=== PATIENT | female | born 2005 | race Hispanic/Latino ===

== ENCOUNTER 2025-07-31 08:18 | Emergency (ER) | payer SELFPAY ==
[2025-07-31 08:34] VITALS: BP 104/79; PULSE 87; RESP 16; TEMP 36.4; O2SAT 100
--- NOTE | 2025-07-31 08:48 | ED_ITS ---
HPI - General Adult General Chief complaint: Nausea/Vomiting/Diarrhea Stated complaint: Headaches/Nausea/Numbness Time Seen by Provider: 07/31/25 08:48 Source: patient Mode of arrival: ambulatory Limitations: no limitations History of Present Illness HPI narrative: 19 yo F presents stating yesterday around 1pm she was sitting on the floor sitting cross legged folding laundry when she noticed muscle cramps and tingling to arms and legs. She got up and stretched out and tingling resolved. She started drinking water because she thought muscles cramps may be due to dehydration. Pt states that she had been cleaning all morning. Muscle cramps resolved in the evening. Pt states she had dull headache at bedtime. When she woke up today she continues to have mild headache. /10 pain. Denies numbness/tingling, weakness. No longer having muscle cramps. Ambulatory with steady gait. No N/V. No vision changes. pt started taking folic acid and metabolist vitamin 3 wks ago. No other new medications. LMP 07/20. Denies . Patient reports mild nasal congestion. Took COVID test yesterday and was negative. No sore throat or cough. Afebrile. All systems reviewed and negative except as noted above. Related Data Allergies Allergy/AdvReac Type Severity Reaction Status Date / Time No Known Allergies Allergy Verified 07/31/25 08:38 [facility] Comments At time of signature, agree with nursing past medical, surgical, social and family history. There is no relevant family history pertinent to the presenting complaint. Exam Narrative: GENERAL: This is a well-nourished, well-developed patient, in no apparent distress. HEAD: normocephalic, atraumatic. EYES: PERRL. Sclera clear/white. Vision is grossly intact. Extraocular motions intact EARS: External ears normal, auditory canals clear and without drainage, TMs normal without perforation. Hearing grossly intact. NOSE: External nose normal with no obvious nasal discharge, nares without redness, no rhinorrhea. THROAT: Mucous membranes moist, posterior pharynx clear. NECK: Neck supple, non-tender without lymphadenopathy, masses or thyromegaly. CARDIOVASCULAR: Regular rate and rhythm without murmurs, gallops, or rubs. RESPIRATORY: Clear to auscultation. Breath sounds equal bilaterally. No wheezes, rales, or rhonchi. GASTROINTESTINAL: Abdomen soft, non-tender, nondistended. Bowel sounds are active. No hepato-splenomegaly, or palpable masses. No guarding. SKIN: warm, Dry, intact with no suspicious lesions or rash, good texture and turgor. NEURO: awake, alert, and oriented to person, place and time. There were no obv ious focal neurologic abnormalities. Upper and lower bilateral extremity strength 5/5. Negative arm drift. 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 Normal gait. EXTREMITIES: No joint tenderness, effusion, or edema noted. BACK: Nontender without deformity. Course Course Level of Care: Express Care Visit Vital Signs Vital signs: Vital Signs Temperature 36.4 C L 07/31/25 08:34 Pulse Rate 87 07/31/25 08:34 Respiratory Rate 16 07/31/25 08:34 Blood Pressure 104/79 07/31/25 08:34 Pulse Oximetry 100 07/31/25 08:34 Temperature 36.4 C L 07/31/25 08:34 Pulse Rate 87 07/31/25 08:34 Respiratory Rate 16 07/31/25 08:34 Blood Pressure 104/79 07/31/25 08:34 Pulse Oximetry 100 07/31/25 08:34 Reviewed Medical Decision Making MDM Narrative Medical decision making narrative: Patient well-appearing, nontoxic. No neuro deficits. Have a mild headache, rates pain 1/10. Has not taking any [id number] medications to treat symptoms. Will follow-up with primary care physician. Will go to the ER for any worsening of symptoms. Vital Signs Vital Signs: Vital Signs Temperature 36.4 C L 07/31/25 08:34 Pulse Rate 87 07/31/25 08:34 Respiratory Rate 16 07/31/25 08:34 Blood Pressure 104/79 07/31/25 08:34 Pulse Oximetry 100 07/31/25 08:34 Temperature 36.4 C L 07/31/25 08:34 Pulse Rate 87 07/31/25 08:34 Respiratory Rate 16 07/31/25 08:34 Blood Pressure 104/79 07/31/25 08:34 Pulse Oximetry 100 07/31/25 08:34 Discharge Plan Discharge Clinical Impression: Headache, Numbness and tingling Patient Disposition: Home Condition: Stable Instructions: Paresthesia (ED), Antibiotic Form Additional Instructions: Take tylenol every 6 to 8 hours to treat your headache as needed. Drink at least 64 ounces of water a day. Call tomorrow and schedule follow up appointment with primary care physician. If you have severe headache, vision changes, numbness or weakness to extremities go to the ER. Patient Language: Welsh Follow-up/Referrals: Rima Gleason DO [Physician, Family Practice] PHYSICIAN,MANAGER RESPIRATORY CARE [Primary Care Provider, Internal Medicine] Time of Disposition: 09:00
== END 2025-07-31 09:03 | disposition home or self-care (01) ==
PROVIDERS: Emergency Provider Nurse Practitioner Family
DX: R51.9 Headache, unspecified (principal); R20.0 Anesthesia of skin; R20.2 Paresthesia of skin
CPT/HCPCS: 99203; G0463

== ENCOUNTER 2025-09-12 08:09 | Outpatient (CLI) | payer SELFPAY ==
[2025-09-12 13:03] LABS: Hematocrit 41.5 % (37.0-47.0); Hemoglobin 13.4 g/dL (12.0-15.0); Mean Corpuscular HGB Conc 32.3 g/dl (32-36); Mean Corpuscular Hemoglobin 29.0 pg (26-34); Mean Corpuscular Volume 89.8 fl (80-100); Platelet Count Result 256 k/mm3 (150-375); Red Blood Count 4.62 M/mm3 (4.2-5.4); White Blood Count 7.6 K/mm3 (4.5-10.0)
[2025-09-12 13:25] LABS: Beta HCG Quantitative < 2.39 mIU/ML
[2025-09-12 13:28] LABS: Alanine Aminotransferase 54 U/L (6-35); Albumin Level 4.5 g/dL (3.5-5.1); Alkaline Phosphatase 52 U/L (38-126); Anion Gap 11 mmol/L (4-12); Aspartate Amino Transferase 72 U/L (14-36); Bilirubin,Total 0.5 mg/dL (0.2-1.3); Blood Urea Nitrogen 10 mg/dL (7-17); Calcium 9.0 mg/dL (8.4-10.2); Carbon Dioxide 23 mmol/L (22-30); Chloride 103 mmol/L (98-107); Estimated Glomerular Filt Rate > 60; Glucose 81 mg/dL (65-110); Potassium 3.5 mmol/L (3.4-5.0); Sodium 137 mmol/L (137-145); Total Protein 8.0 g/dL (6.3-8.2)
[2025-09-12 13:32] LABS: Hemoglobin A1C 5.1 % (<5.7)
[2025-09-12 13:40] LABS: Thyroid Stimulating Hormone 1.550 uIU/mL (0.465-4.680)
== END 2025-09-12 08:10 | disposition home or self-care (01) ==
LOC: ANHGOSHLAB 08:10
PROVIDERS: PCP Family Medicine; Visit Provider Family Medicine
DX: E78.5 Hyperlipidemia, unspecified (principal); R42 Dizziness and giddiness; R73.09 Other abnormal glucose; Z79.899 Other long term (current) drug therapy; N92.6 Irregular menstruation, unspecified
CPT/HCPCS: 36415; 80053; 83036; 84443; 84702; 85027

== ENCOUNTER 2025-09-19 15:57 | Outpatient (CLI) | payer OTHER, SELFPAY ==
--- NOTE | ~2025-09-19 | CT_ITS ---
EXAMINATION: CT abdomen pelvis w con DATE: 09/19/2025 16:42 INDICATION: Noninfective gastroenteritis colitis Comparison: [ None] Technique: Multiple axial CT images of the abdomen and pelvis were obtained with IV contrast. Sagittal and coronal reformatted images were obtained. FINDINGS: Lung bases: [Small opacities in the lower lungs. ] Liver: [ No mass.] [ No intrahepatic biliary duct dilatation.] Gallbladder: [ No wall thickening or stones.] Common bile duct: [ Normal caliber.] [ No stones.] Spleen: [ Within normal limits.] Pancreas: [ No mass. No pancreatic fluid collection.] Adrenals: [ No masses.] Kidneys: [ No masses. No hydronephrosis.][ ] Lymph nodes: [ No adenopathy in the abdomen or pelvis.] Stomach, small bowel and colon: Thickening of the gilbert of the descending colon, transverse colon and rectum. Differential includes incomplete bowel wall distention versus an inflammatory/infectious process. Peritoneum cavity: [ No mesenteric fat stranding or fluid.] Bladder: [ Unremarkable.] Osseous structures: [ No acute fracture or destructive lesion.] [ Multilevel degenerative change in the visualized spine.] Abdominal aorta: [ No aneurysm.] Additional findings: There is a 1.3 x 2.0 x 1.6 cm possible hemorrhagic cyst in the right ovary. A pelvic ultrasound is recommended. IMPRESSION: 1. Thickening of the gilbert of the descending colon, transverse colon and rectum. Differential includes incomplete bowel wall distention versus an inflammatory/infectious process. 2. There is a 1.3 x 2.0 x 1.6 cm possible hemorrhagic cyst in the right ovary. A pelvic ultrasound is recommended. Reviewed, dictated and finalized at location Q. IMPRESSION: 1. Thickening of the gilbert of the descending colon, transverse colon and rectum . Differential includes incomplete bowel wall distention versus an inflammatory /infectious process. 2. There is a 1.3 x 2.0 x 1.6 cm possible hemorrhagic cyst in the right ovary. A pelvic ultrasound is recommended.
== END 2025-09-19 15:58 | disposition home or self-care (01) ==
PROVIDERS: PCP Family Medicine; Visit Provider Family Medicine
DX: K52.9 Noninfective gastroenteritis and colitis, unspecified (principal); K63.89 Other specified diseases of intestine; N83.201 Unspecified ovarian cyst, right side
CPT/HCPCS: 74177; Q9967

== ENCOUNTER 2025-09-22 04:44 | Emergency (ER) | payer OTHER, SELFPAY ==
[2025-09-22] VITALS (12 sets, daily range): BP systolic 96–106; BP diastolic 58–68; PULSE 53–73; RESP 14–21; TEMP 36.6; O2SAT 100
[2025-09-22 05:02] LABS: Hematocrit 43.2 % (37.0-47.0); Hemoglobin 14.1 g/dL (12.0-15.0); Immature Granulocyte Percent A 0.3 % (0-0.5); Lymphocytes Absolute Auto 2.66 K/mm3 (0.9-3.2); Mean Corpuscular HGB Conc 32.6 g/dl (32-36); Mean Corpuscular Hemoglobin 29.3 pg (26-34); Mean Corpuscular Volume 89.8 fl (80-100); Nucleated Red Blood Cells Absolute Auto 0.000 K/mm3 (0.0-0.012); Nucleated Red Blood Cells Perc 0.0 % (0.0-0.2); Platelet Count Result 259 k/mm3 (150-375); Red Blood Count 4.81 M/mm3 (4.2-5.4); White Blood Count 9.7 K/mm3 (4.5-10.0)
[2025-09-22 05:17] LABS: Alanine Aminotransferase 30 U/L (6-35); Albumin Level 4.6 g/dL (3.5-5.1); Alkaline Phosphatase 56 U/L (38-126); Anion Gap 10 mmol/L (4-12); Aspartate Amino Transferase 32 U/L (14-36); Bilirubin,Total 0.2 mg/dL (0.2-1.3); Blood Urea Nitrogen 15 mg/dL (7-17); Calcium 9.1 mg/dL (8.4-10.2); Carbon Dioxide 24 mmol/L (22-30); Chloride 106 mmol/L (98-107); Estimated Glomerular Filt Rate > 60; Glucose 90 mg/dL (65-110); Lipase 91 U/L (23-300); Potassium 4.0 mmol/L (3.4-5.0); Sodium 140 mmol/L (137-145); Total Protein 8.4 g/dL (6.3-8.2)
--- NOTE | 2025-09-22 05:29 | ED_ITS ---
HPI - Abdominal Pain General Chief Complaint: Abdominal Pain Stated Complaint: Abd pain / recent abnormal ct scan Time Seen by Provider: 09/22/25 05:10 History of Present Illness HPI narrative: 20-year-old female presenting to the emergency department with right lower sided abdominal pain and cramping. States she has an ovarian cyst on that side that was found at outpatient scan several days ago. She has an upcoming appointment this morning with her OBGYN as scheduled ultrasound this afternoon for the same. She has recent colitis issues that underwent colonoscopy without any acute findings. She has been taking dicyclomine for her colitis type symptoms. Endorses mild nauseousness and lightheadedness today so she came to the ER for evaluation. Did have some pain in her right side that has since subsided. No traumatic injuries. No history of appendicitis. No fever chills. No nausea or vomiting right now. Pain is much improved and denies any new symptoms otherwise. Related Data Allergies Allergy/AdvReac Type Severity Reaction Status Date / Time No Known Allergies Allergy Verified 09/22/25 04:45 Review of Systems 2 Review of Systems: As reviewed above in HPI Exam 2 Narrative: GENERAL: [Well-appearing, well-nourished, and in no acute distress.] HEAD: [Normocephalic, atraumatic.] EYES: [PERRLA and EOMI.] ENT: Nares clear, no rhinorrhea or epistaxis. Mucous membranes moist. NECK: Supple. CHEST: [Clear to auscultation. No respiratory distress.] HEART: [Regular rate and rhythm]. No murmur heard. [Normal peripheral pulses.] ABDOMEN: Soft and nondistended, nontender to palpation, no tenderness with deep palpation of either bilateral lower quadrant. No rigidity or guarding. No signs of peritonitis. EXTREMITIES: Normal range of motion. [No edema.] SKIN: Warm, dry, no rash. NEURO: [No focal deficits]. Alert and oriented [x3.] PSYCH: [Normal mood and affect.] Course Vital Signs Vital signs: Vital Signs Temperature 36.6 C 09/22/25 04:53 Pulse Rate 73 09/22/25 04:53 Respiratory Rate 16 09/22/25 04:53 Blood Pressure 106/58 L 09/22/25 04:53 Pulse Oximetry 100 09/22/25 04:53 Oxygen Delivery Room Air 09/22/25 04:53 Temperature 36.6 C 09/22/25 04:53 Pulse Rate 73 09/22/25 04:53 Respiratory Rate 16 09/22/25 04:53 Blood Pressure 106/58 L 09/22/25 04:53 Pulse Oximetry 100 09/22/25 04:53 Oxygen Delivery Room Air 09/22/25 04:53 MDM - Abdominal Pain MDM Narrative Medical decision making narrative: 20-year-old female presenting to the emergency department with right lower sided abdominal pain and cramping. States she has an ovarian cyst on that side that was found at outpatient scan several days ago. She has an upcoming appointment this morning with her OBGYN as scheduled ultrasound this afternoon for the same. She has recent colitis issues that underwent colonoscopy without any acute findings. She has been taking dicyclomine for her colitis type symptoms. Endorses mild nauseousness and lightheadedness today so she came to the ER for evaluation. Did have some pain in her right side that has since subsided. No traumatic injuries. No history of appendicitis. No fever chills. No nausea or vomiting right now. Pain is much improved and denies any new symptoms otherwise. Patient has a reassuring examination. Abdominal is soft and nondistended, nontender to palpation, no tenderness with deep palpation of either bilateral lower quadrant. No rigidity or guarding. No signs of peritonitis. Vital signs are all stable without any tachycardia, fever, hypoxemia or blood pressure concerns. Patient most likely has no urgent or emergent intra-abdominal concerns at this time given her lack of pain or symptoms. Will give her doses Zofran Toradol as well as fluids while laboratory studies urinalysis ordered. Laboratory studies showed no leukocytosis or anemia. Normal platelet count. Electrolytes unremarkable. Normal creatinine. Normal glucose. Normal LFTs. Urinalysis shows red blood cells consistent with patient's current menses. No signs of infection. Negative test. Patient is hemodynamically stable and safe for discharge home and already has follow-up this morning and ultrasonography in the afternoon. Given return precautions and DC instructions. Medical Records Attestation: I reviewed the patient's medical records. Lab Data Attestation: I reviewed the patient's lab results. 09/22/25 04:57 09/22/25 04:57 Labs: Lab Results 10/23/25 10/23/25 10/23/25 Range/Units 04:57 05:48 05:51 WBC 9.7 (4.5-10.0) K/mm3 RBC 4.81 (4.2-5.4) M/mm3 Hgb 14.1 (12.0-15.0) g/dL Hct 43.2 (37.0-47.0) % MCV 89.8 (80-100) fl MCH 29.3 (26-34) pg MCHC 32.6 (32-36) g/dl RDW 12.2 (11.5-14.5) % Plt Count 259 (150-375) k/mm3 MPV 10.2 (7.4-10.4) fl Immature Gran % (Auto) 0.3 (0-0.5) % Neut % (Auto) 62.4 (45.5-73.1) % Lymph % (Auto) 27.5 (18.3-44.2) % [place] % (Auto) 7.9 (2.6-8.5) % Eos % (Auto) 1.3 (0-4.4) % Baso % (Auto) 0.6 (0.2-1.2) % Lymph # (Auto) 2.66 (0.9-3.2) K/mm3 [place] # (Auto) 0.8 H (0.1-0.6) K/mm3 Eos # (Auto) 0.1 (0-0.3) K/mm3 Baso # (Auto) 0.1 (0.0-0.1) K/mm3 Abs Immat Gran (auto) 0.03 (0.00-0.031) K/mm3 Absolute Neuts (auto) 6.0 (1.3-6.7) K/mm3 Absolute Nucleated RBC 0.000 (0.0-0.012) K/mm3 Nucleated RBC % 0.0 (0.0-0.2) % Sodium 140 (137-145) mmol/L Potassium 4.0 (3.4-5.0) mmol/L Chloride 106 (98-107) mmol/L Carbon Dioxide 24 (22-30) mmol/L Anion Gap 10 (4-12) mmol/L BUN 15 D (7-17) mg/dL Creatinine 0.66 L (0.7-1.0) mg/dL Estim Creat Clear Calc Not Reportable Estimated GFR > 60 (59 - ) Glucose 90 (65-110) mg/dL Calcium 9.1 (8.4-10.2) mg/dL Total Bilirubin 0.2 (0.2-1.3) mg/dL AST 32 (14-36) U/L ALT 30 (6-35) U/L Alkaline Phosphatase 56 (38-126) U/L Total Protein 8.4 H (6.3-8.2) g/dL Albumin 4.6 (3.5-5.1) g/dL Lipase 91 (23-300) U/L Urine Color Pending Urine Appearance Pending Urine pH Pending Ur Specific [place] Pending Urine Protein Pending Urine Glucose (UA) Pending Urine Ketones Pending Ur Blood (Man) Pending Urine Nitrate Pending Urine Bilirubin Pending Urine Urobilinogen Pending Leukocyte Esterase Rfl Pending POC Urine HCG, Qual Negative (Negative) Discharge Plan Discharge Clinical Impression: Abdominal pain, Ovarian cyst Patient Disposition: Home Condition: Stable Instructions: Antibiotic Form, Abdominal Pain (ED) Additional Instructions: Laboratory studies are reassuring and normal. No signs of infection or bleeding. No signs of any organ dysfunction. No signs of infection the urine. Follow-up with your OBGYN this morning and obtain the ultrasound in the afternoon. Return with any new, worsening, emergent symptoms or concerns. Patient Language: [place] Follow-up/Referrals: Irma Henderson DO [Primary Care Provider, [facility]] Time of Disposition: 06:28
[2025-09-22] MEDS: LACTATED RINGERS 1,000 ML 999 ML IV CONT (05:47)
[2025-09-22] MEDS: ONDANSETRON INJ 4 MG/2 ML VIAL IV PUSH (05:48)
[2025-09-22] MEDS: KETOROLAC 15 MG/ML VIAL (*BKC) IV PUSH (05:48)
[2025-09-22 05:53] LABS: BEDSIDEPREGUCG Negative (Negative)
[2025-09-22 06:03] LABS: Add Urine Microscopic? YES; Appearance Urine Clear (Clear); Glucose Urine UA Negative (Negative); Leukocyte Esterase Ur Negative LEU/UL (Negative); Nitrate Urine Negative (Negative); Non Pathogenic Casts 0-2; Specific Grav Ur 1.021 (1.001-1.035)
== END 2025-09-22 06:57 | disposition home or self-care (01) ==
PROVIDERS: Emergency Provider Student in an Organized Health Care Education/Training Program; PCP Family Medicine
DX: N83.201 Unspecified ovarian cyst, right side (principal); R10.31 Right lower quadrant pain
CPT/HCPCS: 36415; 80053; 81001; 81025; 83690; 85025; 96361; 96374; 96375; 99284; J1885; J2405; J7120

== ENCOUNTER 2025-09-22 15:09 | Outpatient (CLI) | payer OTHER, SELFPAY ==
--- NOTE | ~2025-09-22 | US_ITS ---
EXAMINATION: US pelvic complete w TV INDICATION: Pelvic pain Comparison:No prior studies for comparison. TECHNIQUE: Multiple transabdominal and endovaginal sonographic images of the pelvis performed. FINDINGS: The uterus measures 6.4 x 2.8 x 2.9 cm. The endometrial complex measures 6 mm. The right ovary measures 3.5 x 2.2 x 2.1 cm and the left ovary measures 2.6 x 2.3 x 1.8 cm. There are small follicles in each ovary. Normal doppler signal in both ovaries. There is no free fluid in the pelvis. There are no abnormal masses seen on either side. IMPRESSION: 1. Unremarkable pelvic ultrasound. Reviewed, dictated and finalized at location O.
== END 2025-09-22 15:10 | disposition home or self-care (01) ==
LOC: MICIMG 15:12
PROVIDERS: Visit Provider Family Medicine
DX: N83.201 Unspecified ovarian cyst, right side (principal)
CPT/HCPCS: 76830; 76856

== ENCOUNTER 2025-10-04 13:04 | Outpatient (CLI) | payer OTHER, SELFPAY ==
--- OUTSIDE RECORDS SUMMARY | 2023-04-11 09:15 | XMS_ITS | Continuity of Care Document ---
Author Organization [facility] Address [address] [place] [address] Phone Care Team Providers Care Trim Operator Name Role Phone MD CORINA Scott, Clementine Unavailable Unavailable Allergies, Adverse Reactions, Alerts Substance Reaction Status Criticality No Known Allergies Active No Inform ation Medications Medication Instructions Dosage Effective Dates (start - stop) Status Comments metronidazole 500 mg tablet take 1 tablet by oral route every 12 hours 500 MG - Active Procedures Procedure Date OV 10 MIN M/F BLOOD COLLECTIO PREV VISIT, EST, AGE 18-39 OV 15 MIN M/F OV 15 MIN M/F OV 15 MIN M/F OV 10 MIN M/F OV 25 MIN F OV 20 MIN M/F Advance Directives Directive Yes / No Effective Date File Name No Information Encounters Encounter Description Practice Location Reason(s) For Visit Diagnoses Date Provider Providers Copied on Encounter OV 10 MIN M/F [facility], [address], [place], [place], [id number], [place] tel:[phone] [address] Follow Up of lab results (chief complaint) Body mass index (BMI) 23.0-23.9, adultPerson consulting for explanation of examEncounter for examination of blood pressureHyperlipid emia, unspecified 3 MD Clementine Schmidt. [address], [place], [address], [place]. tel:[phone] PREV VISIT, BRENT, AGE 18-39 [facility], [address], [place], [place], [id number], [place] tel:[phone] [address] Preventive exam (chief complaint) Encounter for adult annual physical exam w/ abnormal findingAbdominal painNonspecific low blood-pressure reading 3 MD Clementine Schmidt. [address], [place], [address], [place]. tel:[phone] OV 15 MIN M/F [facility], [address], [place], [place], [id number], [place] tel:[phone] [address] Follow Up of discuss lab results (chief complaint) Body mass index (BMI) 27.0-27.9, adultPerson consulting for explanation of examUrinary tract infectionEncounter for examination of blood pressure 3 MD Clementine Schmidt. [address], [place], [address], [place]. tel:[phone] OV 15 MIN M/F [facility], [address], [place], [place], [id number], [place] tel:[phone] [address] Vaginal discharge (chief complaint) Body mass index (BMI) 23.0-23.9, adultDysuriaVagina l odor 3 MAURICIO Ruiz. [address], [place], [address], [place]. tel:[phone] OV 15 MIN M/F [facility], [address], [place], [place], [id number], [place] tel:[phone] [address] Acute bronchitis, unspecified 2 MAURICIO Samuels. [address], [place], [address], [place]. tel:[phone] OV 10 MIN M/F [facility], Count includes the [facility], [place], [place], [id number], [place] tel:[phone] [address] cough (chief complaint) Cough, unspecified type Sep-0 2 RABIA Redmond. [address] [place] [address], [facility]. tel:[phone] OV 25 MIN F [facility], Count includes the [facility], [place], [place], [id number], [place] tel:[phone] [address] Follow Up of discuss test results (chief complaint) Body mass index (BMI) 23.0-23.9, adultEncounter for PPD skin test readingEncounter to discuss test resultsMixed hyperlipidemiaDerm atitis 2 MAURICIO Ca. [address] [place], [address], . tel:[phone] OV 20 MIN M/F [facility], [facility] [address], [place], [place], [id number], [place] tel:[phone] [address] PPD test positive (chief complaint) Body mass index (BMI) 23.0-23.9, adultPositive TB test 2 MAURICIO Ca. [address] [place], [place], [facility], . tel:[phone] Family History Family Member Type Diagnosis Age At Onset Father Problem Alive and well Mother Problem Alive and well Immunizations Vaccine Date Status Comments COVID-19, mRNA,LNP-S,PF administered Sour ce: Other Registry COVID-19, mRNA,LNP-S,PF administered Sour ce: Other Registry COVID-19, mRNA,LNP-S,PF administered Sour ce: Other Registry Td Pres-Free administered Source: Other R egistry Flu quadrivalent injectable pfree administered Source: Other Regist ry Flu quadrivalent injectable pfree administered Source: Other Regist ry MMR administered Source: Other R egistry Polio-Inject administered Source: Other R egistry Td Pres-Free administered Source: Other R egistry HepA-Ped 2 Dose administered Source: Othe r Registry HepB-Peds administered Source: Other R egistry HPV9 administered Source: Other R egistry MMR administered Source: Other R egistry HepB-Peds administered Source: Other R egistry Polio-Inject administered Source: Other R egistry Varicella administered Source: Other R egistry MMR administered Source: Other R egistry HepB-Peds administered Source: Other R egistry Polio-Inject administered Source: Other R egistry Varicella administered Source: Other R egistry HepA-Ped 2 Dose administered Source: Othe r Registry HPV, NOS administered Source: Other R egistry Tdap administered Source: Other R egistry MCV4O administered Source: Other R egistry Influenza pending Source: [facility] unization Record Payers Payer name Insurance type Covered democrat ID Authoriza tion(s) [employer] [place] [id number] [facility] Wrap Payer [id number] [employer] [place] [employer] CI [id number] [facility] Wrap Payer [id number] Social History Type Description Quantity Date Captured Comments Alcohol Use Details Unknown Caffeine Use Details Unknown Tobacco Use Status No Information Smoking Status No Information Sex Female Sexual Orientation Straight or heterosexual Gender Identity Female Vital Signs Date / Time: Height Weight BMI Pulse Rate Blood Pressure Temperature Respiratory Rate Body Surface Area Head Circumference Head Circ. Percentile Wt./Damian. Percentile BMI percentile Pulse Ox Inhaled Ox 1:34 PM 61.00 in 55.338 kg (122.00 lbs) 23.0 5 kg/m eter (2) 100 /min 120/69 mm[Hg] 97.60 F 16 /min 1.54 meter(2) 64 Chief Complaint And Reason For Visit From encounter dated '04/11/2023 15:15'. Follow Up of lab results (chief complaint) Reason For Referral Reason For Referral No Information Plan Of Treatment Date Type Action Status Goal Fluoride varnish application . Due on due Goal Influenza vaccine. Due on Oc due Goal PPD (TST). Due on due Goal Diabetes screening. Due on A due Goal Depression screening. Due on due Goal Chlamydia, DNA Probe. Due on due Goal HPV (1st) due Goal Tdap due Goal Complete Physical Exam. Due on due Goal HPV (2nd) due Goal Staying Healthy Assessment - Adult. Due on due Goal Influenza vaccine. Due on Oc due Goal Chlamydia, DNA Probe. Due on due Goal PPD (TST). Due on due Goal Depression screening. Due on due Goal Complete Physical Exam. Due on due Goal Diabetes screening. Due on A due Goal Tdap due Goal Staying Healthy Assessment - Adult. Due on due Goal HPV (1st) due Goal HPV (2nd) due Goal Staying Healthy Assessment - Adult. Due on due Goal Influenza vaccine. Due on due Goal HPV (1st). Due on due Goal PPD (TST). Due on due Goal Fluoride varnish application . Due on due Goal Chlamydia, DNA Probe. Due on due Goal Diabetes screening. Due on due Goal Depression screening. Due on due Goal Complete Physical Exam. Due on due Goal Tdap. Due on due Goal Depression screening. Due on due Goal Chlamydia, DNA Probe. Due on due Goal HPV (1st). Due on due Goal Fluoride varnish application . Due on due Goal Complete Physical Exam. Due on due Goal PPD (TST). Due on due Goal Tdap. Due on due Goal Staying Healthy Assessment - Adult. Due on due Goal Influenza vaccine. Due on due Goal Diabetes screening. Due on due Goal Fluoride varnish application . Due on due Goal Diabetes screening. Due on due Goal PPD (TST). Due on 2 due Goal HPV (1st). Due on 2 due Goal Influenza vaccine. Due on due Goal Depression screening. Due on due Goal Chlamydia, DNA Probe. Due on due Goal Tdap. Due on due Goal Staying Healthy Assessment - Adult. Due on due Goal Complete Physical Exam. Due on due Goal Staying Healthy Assessment - Adult. Due on due Goal Chlamydia, DNA Probe. Due on due Goal Influenza vaccine. Due on due Goal Depression screening. Due on due Goal Tdap. Due on due Goal Complete Physical Exam. Due on due Goal PPD (TST). Due on 2 due Goal Fluoride varnish application . Due on due Goal HPV (1st). Due on due Goal Diabetes screening. Due on due Goal Tdap. Due on due Goal Chlamydia, DNA Probe. Due on due Goal Complete Physical Exam. Due on due Goal Diabetes screening. Due on due Goal Staying Healthy Assessment - Adult. Due on due Goal HPV (1st). Due on due Goal Fluoride varnish application . Due on due Goal PPD (TST). Due on 2 due Goal Depression screening. Due on due Goal Influenza vaccine. Due on due Goal Dietary education for weight gain completed Goal Influenza vaccine. Due on due Goal Depression screening. Due on due Goal PPD (TST). Due on 2 due Goal Fluoride varnish application . Due on due Goal Staying Healthy Assessment - Adult. Due on due Goal Diabetes screening. Due on due Goal Complete Physical Exam. Due on due Goal Chlamydia, DNA Probe. Due on due Goal Tdap. Due on due Goal HPV (1st). Due on 2 due Referral Ordered: Gleason Gear Generator/Agricultural Consultant timeframe: 1 Month. (related to Body mass index [BMI] 23.0-23.9, adult) ordered Referral Ordered: X-RAY EXAM CHEST 2 VIEWS ordered Unknown Immunization Influenza ordered History Of Present Illness Encounter Date Complaint History Of Prese nt Illness Follow Up of lab results Preventive exam Last LMP was 08/2023. Her menses is with spotting flow with decreased frequency. Negative for: breast discharge, breast lump(s) and breast pain. Positive for: breast self exam. She does not take calcium. She does not take Vitamin D. She does not take multivitamins. She does not take Folic acid. She has not been exposed to passive smoke. She has not been exposed to passive vaping. She does not drink alcohol. Follow Up of discuss lab results Vaginal discharge Her symptoms b celestine 2 Weeks ago. She states the problem has remained unchanged. The symptoms are reported as being moderate. Presently the patient is experiencing vaginal odor and vaginal discharge. Color is white. Character is cottage cheese-like. Presently the patient is not experiencing vaginal itching and vaginal irritation. Last menstrual period was 12/10/2022. The patient has no history of chlamydia or gonorrhea. cough Onset: 4 days ag o. Severity: 4. The patient describes the cough as moist and productive (of clear sputum). It occurs occasionally. The problem has not changed. There are no aggravating factors. There are no relieving factors. Associated symptoms include cough. Pertinent negatives include chills, dyspnea, dyspnea on exertion, epistaxis, fatigue, fever, heartburn, hemoptysis, hoarseness, nasal congestion, night sweats, pleuritic pain, post-nasal drainage, rhinitis, rhinorrhea, sinus pressure, sore throat, weight loss and wheezing. Follow Up of discuss test result s PPD test positive Functional Status Date Functional Assessmen t Pain Score 0/10 Instructions Date Instruction Additional Infor ben Diet modification wi th decrease saturated fat and increase fiber and omega-3 is recommended. Increase in physical activity and regular exercising are strongly encouraged. The patient is scheduled with needle loom tender. Repeat the lipid panel in 6 months. Related to Hyperlipidemia, unspecified Dietary needs education Related to Body mass index [BMI] 23.0-23.9, adult Giving encouragement to exercise Related to Body mass index [BMI] 23.0-23.9, adult Ciprofloxacin, 500 m g q12 Hr x 7 days is prescribed. Probiotic is advised. Adequate hydration is advised. F/up in 10 days Related to Urinary tract infection Giving encouragement to exercise Related to Body mass index [BMI] 27.0-27.9, adult Dietary needs education Related to Body mass index [BMI] 27.0-27.9, adult Most likely BV will start on Metronidazole.Informed patient to AVOID ALL ALCHOHOL UNTIL MEDICATION COMPLETED.Avoid sexual intercourse until treated and all labs reviewed.Sureswab to check for Trich, BV, yeast, G/C. Follow up in 1-2 weeks for results and adjust meds as needed. Related to Vaginal odor UA and urine culture sent to lab. Review results in 1 week. Related to Dysuria Dietary needs education Related to Body mass index [BMI] 23.0-23.9, adult Giving encouragement to exercise Related to Body mass index [BMI] 23.0-23.9, adult telehealth, pt conse nts to telehealth.pt c/c cough and congestion X 4 days NKA, denies fever, sore throat, headache, diarrhea or vomiting. c/c right itchy and puffy alittle.mucinex prn, push po fluids, get COVID screen discussed with pt today's telehealth.swelling of arm present to hosp ER for eval discussed today's telehealth.Telehealth f/u X 1 weeksymptoms worsen call office discussed with pt today's discussionPOS 10 Related to Cough, unspecified type Discussed CXR with p cindy. Copy given, patient desired.Discussed Medication for Dermatitis on left hand.RTC 3 months for Lipid panel. PT acknowledge. Related to Mixed hyperlipidemia Giving encouragement to exercise Related to Body mass index [BMI] 23.0-23.9, adult Dietary needs education Related to Body mass index [BMI] 23.0-23.9, adult Exercise promotion: strength training Related to Body mass index [BMI] 23.0-23.9, adult Dietary education for weight gai n Related to Body mass index [BMI] 23.0-23.9, adult Discussed Positive T B [id number] referral given to Mother and Patient. Related to Positive TB test Dietary needs education Related to Body mass index [BMI] 23.0-23.9, adult Giving encouragement to exercise Related to Body mass index [BMI] 23.0-23.9, adult Assessments Type Assessment Date assessment Body mass index [BMI] 23.0-23.9, adult assessment Person consulting for explanatio n of exam assessment Encounter for examination of blo od pressure impression BP is WNL today, 120/69 023 impression 17-year old female p resents to f/up lab results. The results were reviewed and explained to the patient in details. There is hyperlipidemia. CMP, CBC, kidney and thyroid functions are with no significant findings. STDs and HIV - non-reactive. TB test is negative. All the patient's questions and concerns were addressed assessment Hyperlipidemia, unspecified impression Moderately increased total cholesterol (239 mg/dL) and LDL cholesterol (147 mg/dL) is noted. TG are elevated to 165 Patient Care Teams Name Effective Dates (start - stop) Status Members No Information
[2025-10-04 19:20] LABS: CRP < 0.5 mg/dL (<1.0)
[2025-10-10 10:37] LABS: Deamidated Gliadin Abs, IgA 4; Deamidated Gliadin Abs, IgG 3; Immunoglobulin A, Qn 197
== END 2025-10-04 13:05 | disposition home or self-care (01) ==
LOC: ANHGOSHLAB 13:05
PROVIDERS: PCP Family Medicine; Visit Provider Nurse Practitioner
DX: R93.89 Abnormal findings on diagnostic imaging of other specified body structures (principal)
CPT/HCPCS: 36415; 82784; 85652; 86140; 86231; 86258

== ENCOUNTER 2025-10-05 07:42 | Outpatient (NON) | payer OTHER, SELFPAY ==
--- OUTSIDE RECORDS SUMMARY | 2023-04-11 09:15 | XMS_ITS | Continuity of Care Document ---
Author Organization [facility] Address [address] [place] [address] Phone Care Team Providers Care Price Analyst Name Role Phone MD CORINA Scott, Clementine [...] Copied on Encounter OV 10 MIN M/F [facility], [address], [place], [place], [id number], [place] tel:[phone] [address] Follow Up of lab results (chief complaint) Body mass index (BMI) 23.0-23.9, adultPerson consulting for explanation of examEncounter for examination of blood pressureHyperlipid emia, unspecified 3 MD Clementine Schmidt. [address], [place], [address], [place]. tel:[phone] PREV VISIT, BRENT, AGE 18-39 [facility], [address], [place], [place], [id number], [place] tel:[phone] [address] Preventive exam (chief complaint) Encounter for adult annual physical exam w/ abnormal findingAbdominal painNonspecific low blood-pressure reading 3 MD Clementine Schmitd. [address], [place], [address], [place]. tel:[phone] OV 15 MIN M/F [facility], [address], [place], [place], [id number], [place] tel:[phone] [address] Follow Up of discuss lab results (chief complaint) Body mass index (BMI) 27.0-27.9, adultPerson consulting for explanation of examUrinary tract infectionEncounter for examination of blood pressure 3 MD Clementine Schmidt. [address], [place], [address], [place]. tel:[phone] OV 15 MIN M/F [facility], [address], [place], [place], [id number], [place] tel:[phone] [address] Vaginal discharge (chief complaint) Body mass index (BMI) 23.0-23.9, adultDysuriaVagina l odor 3 MAURICIO Ruiz. [address], [place], [address], [place]. tel:[phone] OV 15 MIN M/F [facility], [address], [place], [place], [id number], [place] tel:[phone] [address] Acute bronchitis, unspecified 2 MAURICIO Samuels. [address], [place], [address], [place]. tel:[phone] OV 10 MIN M/F [facility], [facility], [place], [place], [id number], [place] tel:[phone] [address] cough (chief complaint) Cough, unspecified type Sep-0 2 RABIA Redmond. [address] [place] [address], [facility]. tel:[phone] OV 25 MIN F [facility], [facility], [place], [place], [id number], [place] tel:[phone] [address] Follow Up of discuss test results (chief complaint) Body mass index (BMI) 23.0-23.9, adultEncounter for PPD skin test readingEncounter to discuss test resultsMixed hyperlipidemiaDerm atitis 2 MAURICIO Ca. [address] [place], [address], . tel:[phone] OV 20 MIN M/F [facility], [facility] [address], [place], [place], [id number], [place] tel:[phone] [address] PPD test positive (chief complaint) Body mass index (BMI) 23.0-23.9, adultPositive TB test 2 MAURICIO Ca. [address] [place], [place], [facility], . tel:[phone] Family History Family Member Type Diagnosis Age [...] Other R egistry Influenza pending Source: [facility] unization Record Payers Payer name Insurance type Covered democrat ID Authoriza tion(s) [employer] [place] [employer] [place] [id number] [facility] Wrap Payer [id number] [employer] [place] [employer] [place] [id number] [facility] Wrap Payer [id number] Social History Type Description Quantity Date Captured [...] application . Due on due Goal HPV (2nd) due Goal Staying Healthy Assessment - Adult. Due on due Goal PPD (TST). Due on due Goal Diabetes screening. Due on A due Goal Depression screening. Due on due Goal Chlamydia, DNA Probe. Due on due Goal HPV (1st) due Goal Tdap due Goal Complete Physical Exam. Due on due Goal Influenza vaccine. Due on due Goal Influenza vaccine. Due on due Goal Chlamydia, DNA Probe. Due on due Goal PPD (TST). Due on due Goal Depression screening. Due on due Goal Complete Physical Exam. Due on due Goal Diabetes screening. Due on A due Goal Tdap due Goal Staying Healthy Assessment - Adult. Due on due Goal HPV (1st) due Goal HPV (2nd) due Goal Fluoride varnish application . Due [...] Complete Physical Exam. Due on due Goal Fluoride varnish application . Due on due Goal HPV (1st). Due on due Goal Diabetes screening. Due on due Goal Influenza vaccine. Due on due Goal Staying Healthy Assessment - Adult. Due on due Goal Chlamydia, DNA Probe. Due on due Goal Depression screening. Due [...] Dietary education for weight gain completed Goal Depression screening. Due on due Goal [...] due Goal Influenza vaccine. Due on due Referral Ordered: Auto Dismantler/Cushion Stuffer timeframe: 1 Month. (related to Body mass [...] strongly encouraged. The patient is scheduled with vine pruner. Repeat the lipid panel in 6 months. Related to Hyperlipidemia, unspecified Giving encouragement to exercise Related to Body mass index [BMI] 23.0-23.9, adult Dietary needs education Related to Body mass index [BMI] 23.0-23.9, adult Ciprofloxacin, 500 m g q12 Hr x 7 days is prescribed. Probiotic is advised. Adequate hydration is advised. F/up in 10 days Related to Urinary tract infection Dietary needs education Related to Body mass index [BMI] 27.0-27.9, adult Giving encouragement to exercise Related to [...] results in 1 week. Related to Dysuria Giving encouragement to exercise Related to Body [...] panel. PT acknowledge. Related to Mixed hyperlipidemia Exercise promotion: strength training Related to Body mass index [BMI] 23.0-23.9, adult Dietary education for weight gai n Related to Body mass index [BMI] 23.0-23.9, adult Dietary needs education Related to Body mass index [BMI] 23.0-23.9, adult Giving encouragement to exercise Related to Body mass index [BMI] 23.0-23.9, adult Discussed Positive T B [id number] referral given to Mother and Patient. Related to Positive TB test Giving encouragement to exercise Related to Body [...]
[2025-10-09 01:07] LABS: Calprotectin, Fecal 15 ug/g (0-120)
== END 2025-10-05 07:43 | disposition home or self-care (01) ==
LOC: ANHLAB 07:43
PROVIDERS: PCP Family Medicine; Visit Provider Nurse Practitioner
DX: R93.89 Abnormal findings on diagnostic imaging of other specified body structures (principal)
CPT/HCPCS: 83993; 87338; 87507

== ENCOUNTER 2025-10-20 08:28 | Outpatient (CLI) | payer OTHER, SELFPAY | END 2025-10-20 08:29 | disposition home or self-care (01) | LOC: ANHAUDASC 08:29 | PROVIDERS: PCP Family Medicine; Visit Provider Otolaryngology | DX: H93.13 Tinnitus, bilateral (principal); H90.3 Sensorineural hearing loss, bilateral | CPT/HCPCS: 92557; 92567 ==